=== PATIENT | female | born 1940 | race Two or more races ===

== ENCOUNTER 2017-08-12 13:13 | Emergency (ER) | payer OTHER ==
[~2017-08-12] VITALS: Ht 149.9 cm; Wt 68.0 kg
[2017-08-12 13:13] VITALS: BP 142/101
--- NOTE | 2017-08-12 13:17 | NUR ---
Patient ambulated with assistance to bed 12.
--- NOTE | 2017-08-12 13:24 | NUR ---
PATIENT IS A 77 YO FEMALE BIB FAMILY FOR ABDOMINAL PAIN AND CONSTIPATION, SHE IS AWAKE AND ALERT ABLE TO AMBULATE BUT DOESN'T WANT TO SIT OR LIE DOWN.
[2017-08-12] MEDS ORDERED: NACL 0.9% 1,000 ML IV SCH (13:44)
[2017-08-12] MEDS ORDERED: ONDANSETRON 4 MG/2 ML VIAL IVP ONE (13:45)
[2017-08-12] MEDS ORDERED: KETOROLAC 30 MG/ML VIAL IVP ONE (13:45)
[2017-08-12 14:16] LABS: BASOPHILS # (AUTO) 0.3 K/uL (0.00-0.22); BASOPHILS % (AUTO) 2.1 % (0.0-2.0); EOSINOPHILS # (AUTO) 0.2 K/uL (0-0.4); EOSINOPHILS % (AUTO) 1.5 % (0.0-4.0); HEMATOCRIT 38.5 % (36-48); LYMPHOCYTES # (AUTO) 1.8 K/uL (2.5-16.5); MEAN CORPUSCULAR HEMOGLOBIN 30 pg (27-31); MEAN CORPUSCULAR HGB CONC 34 g/dL (33-37); MEAN CORPUSCULAR VOLUME 89 fL (80-94); MONOCYTES # (AUTO) 0.9 K/uL (0.8-1.0); MONOCYTES % (AUTO) 6.3 % (1.7-9.3); NEUTROPHILS # (AUTO) 10.5 K/uL (1.8-7.7); NEUTROPHILS % (AUTO) 77.1 % (42.2-75.2); PLATELET COUNT (AUTO) 370 K/uL (140-450); RED BLOOD CELL COUNT(AUTO) 4.34 MIL/uL (4.20-5.40); RED CELL DISTRIBUTION WIDTH 12.9 % (11.6-13.7); WHITE BLOOD COUNT (AUTO) 13.7 K/uL (4.8-10.8)
--- NOTE | 2017-08-12 14:29 | NUR ---
[facility]
[2017-08-12 14:39] LABS: ALBUMIN 4.1 g/dL (3.4-5.0); ANION GAP 13.3 (8-16); ASPARTATE AMINOTRANSFERASE 21 U/L (15-37); CARBON DIOXIDE 24.7 mmol/L (21-32); CHLORIDE 103 mmol/L (98-107); CREATININE 1.3 mg/dL (0.6-1.3); GLUCOSE 168 mg/dL (74-106); SODIUM SERUM 137 mmol/L (136-145); TOTAL BILIRUBIN 0.3 mg/dL (0.0-1.0); UREA NITROGEN, BLOOD 39 mg/dL (7-18)
--- NOTE | 2017-08-12 14:49 | NUR ---
PT BACK FROM RADIOLOGY VIA [facility] WITH [facility].
[2017-08-12] MEDS ORDERED: SODIUM PHOSPHATE 118 ML ENEM RC ONE (15:20)
--- NOTE | 2017-08-12 15:20 | NUR ---
# 14 FR In and Out catheter utilizing sterile technique. Immediate return of 50 ml CLEAR YELLOW urine noted, sample collected and sent to lab. Pt tolerated procedure well. Performed by ZEINA Solis and ZEINA Wild.
--- NOTE | 2017-08-12 16:00 | NUR ---
Fleet enema admistered by 2 female [employer] students and their instructor. Pt tolerated well.
[2017-08-12 16:07] LABS: APPEARANCE,URINE CLEAR (CLEAR); BILIRUBIN,URINE NEGATIVE (NEGATIVE); BLOOD, URINE NEGATIVE (NEGATIVE); COLOR,URINE YELLOW (YELLOW); LEUKOCYTE ESTERASE ,URINE NEGATIVE (NEGATIVE); NITRITE, URINE NEGATIVE (NEGATIVE); UGLUCOSE NEGATIVE (NEGATIVE)
--- NOTE | 2017-08-12 16:40 | NUR ---
PT AMBULATED TO RESTROOM WITH FAMILY MEMBER.
--- NOTE | 2017-08-12 17:09 | NUR ---
IV removed, catheter intact and site benign. Applied folded 4x4 gauze and tape to stop bleeding.
--- NOTE | 2017-08-12 17:12 | NUR ---
Patient discharged with v/s stable. Written and verbal after care instructions given and explained. Patient alert, oriented and verbalized understanding of instructions. Ambulatory with steady gait. All questions addressed prior to discharge. ID band removed. Patient advised to follow up with PMD. Rx of NAPROSYN 375MG, MIRALAX POWDER SOLUTION AND MAGNESIUM CITRATE SOLUTION given. Patient educated on indication of medication including possible reaction and side effects. Opportunity to ask questions provided and answered.
[2017-08-12 17:13] VITALS: BP 127/88
== END 2017-08-12 17:12 | disposition home or self-care (01) ==
LOC: EDBD 13:41 → MED 13:41
DX: S52.91XA Unspecified fracture of right forearm, initial encounter for closed fracture (principal); K59.00 Constipation, unspecified; I10 Essential (primary) hypertension; Z85.42 Personal history of malignant neoplasm of other parts of uterus; X58.XXXA Exposure to other specified factors, initial encounter; Y93.89 Activity, other specified; Y92.89 Other specified places as the place of occurrence of the external cause; Y99.8 Other external cause status
CPT/HCPCS: 36415; 74176; 80053; 81003; 83605; 85025; 87040; 93005; 96361; 96374; 96375; 99285; C1758; J1885; J2405; J7030